=== PATIENT | male | born 1955 | race Caucasian/White ===

== ENCOUNTER 2024-10-11 11:01 | Day surgery (SDC) | payer MEDICARE, BC ==
[~2024-10-11] VITALS: Ht 180.3 cm; Wt 99.9 kg
[2024-10-11] VITALS (11 sets, daily range): BP systolic 104–161; BP diastolic 63–93; PULSE 92–137; RESP 14–16; TEMP 97.7; O2SAT 91–97
[2024-10-11] MEDS ORDERED: ATOR10TA70 PO (11:44)
[2024-10-11] MEDS ORDERED: TRAZ-251 PO (11:44)
[2024-10-11] MEDS ORDERED: TIRZ5PEN3 (11:44)
[2024-10-11] MEDS ORDERED: SOLI10TA7 PO (11:44)
[2024-10-11] MEDS ORDERED: TESTOSTERONE (11:44)
[2024-10-11] MEDS ORDERED: APIX5TAB3 PO (11:44)
[2024-10-11] MEDS ORDERED: IRBE1TAB33 PO (11:44)
[2024-10-11] MEDS ORDERED: OMEG-270 PO (11:44)
[2024-10-11] MEDS ORDERED: ALBU17AE26 (11:44)
[2024-10-11] MEDS ORDERED: TADA10TA14 PO (11:44)
[2024-10-11] MEDS ORDERED: SOTA80TA73 (11:44)
[2024-10-11] MEDS ORDERED: LAMO100T PO (11:44)
[2024-10-11] MEDS ORDERED: AZEL6DRO5 EACHEYE (11:44)
[2024-10-11] MEDS ORDERED: FENO135C4 PO (11:44)
[2024-10-11 11:56] LABS: BASOPHILS # (AUTO) 0.1 X10'3 (0-0.2); BASOPHILS % (AUTO) 0.9 % (0-1); EOSINOPHILS # (AUTO) 0.1 X10'3 (0-0.9); EOSINOPHILS % (AUTO) 1.9 % (0-6); HEMATOCRIT 49.8 % (42.0-52.0); HEMOGLOBIN 17.2 g/dl (14.0-17.9); LYMPHOCYTES # (AUTO) 1.8 X10'3 (1.1-4.8); LYMPHOCYTES % (AUTO) 25.2 % (21-51); MEAN CORPUSCULAR HEMOGLOBIN 33.4 PG (27.0-31.0); MEAN CORPUSCULAR HGB CONC 34.6 g/dL (33.0-36.5); MEAN CORPUSCULAR VOLUME 96.6 FL (78-98); MONOCYTES # (AUTO) 0.7 X10'3 (0-0.9); MONOCYTES % (AUTO) 10.1 % (2-12); NEUTROPHILS # (AUTO) 4.5 X10'3 (1.8-7.7); NEUTROPHILS % (AUTO) 61.9 % (42-75); PLATELET COUNT 267 X10'3 (140-440); RED BLOOD COUNT 5.15 X10'6 (4.70-6.10); WHITE BLOOD COUNT 7.2 X10'3 (4.5-11.0)
[2024-10-11 12:01] LABS: ALBUMIN 3.9 G/DL (3.4-5.0); ANION GAP 8 (8-16); APTT 29 SECONDS (22-32); BLOOD UREA NITROGEN 19 MG/DL (7-18); BUN/CREATININE RATIO 16.4 (10.0-20.0); CALCIUM 9.4 MG/DL (8.5-10.1); CHLORIDE 100 MMOL/L (99-107); CREATININE 1.16 MG/DL (0.60-1.10); GLUCOSE 88 MG/DL (70-104); INR 1.1 INR; POTASSIUM 4.1 MMOL/L (3.5-5.1); PROTHROMBIN TIME 11.1 SECONDS (9.0-12.0); SODIUM 139 MMOL/L (135-145); eGFR 62 ML/MIN
[2024-10-11] MEDS: MIDAZolam 1mg/ml 10ml vial IV ONE (13:33)
[2024-10-11] MEDS: normal saline 1000ml 1,000 ML IV SCH (13:33)
[2024-10-11] MEDS: fentaNYL/PF 50MCG/1 ML 2ML syringe IV ONE (13:33)
== END 2024-10-11 14:25 | disposition home or self-care (01) ==
LOC: SSTAY O 11:01
PROVIDERS: ATTEND Student in an Organized Health Care Education/Training Program
DX: I48.91 Unspecified atrial fibrillation (principal); I10 Essential (primary) hypertension; E78.00 Pure hypercholesterolemia, unspecified; K21.9 Gastro-esophageal reflux disease without esophagitis; G47.33 Obstructive sleep apnea (adult) (pediatric); I35.0 Nonrheumatic aortic (valve) stenosis; I42.9 Cardiomyopathy, unspecified; Z79.01 Long term (current) use of anticoagulants; Z79.890 Hormone replacement therapy; Z79.899 Other long term (current) drug therapy; Z88.0 Allergy status to penicillin; Z88.8 Allergy status to other drugs, medicaments and biological substances
CPT/HCPCS: 36415; 80048; 85025; 85610; 85730; 92960; 93005; J2250; J3010; J7030; Z7610